=== PATIENT | male | born 1955 | race Hispanic/Latino ===

== ENCOUNTER 2016-11-18 10:22 | Outpatient (CLI) | payer OTHER ==
--- NOTE | 2016-11-18 11:20 | XRay Report ---
CERVICAL SPINE RADIOGRAPHS INDICATION: Hepatitis C, mental problems and left shoulder pain. COMPARISON: None similar at this institution. FINDINGS: AP, open-mouth, lateral and swimmer's views of the cervical spine, 4 images demonstrate unremarkable dens with symmetric lateral masses, though dens tip slightly obscured due to overlying skull. Few missing teeth and small dental radiopaque filling noted. Intact craniocervical articulation with normal predental space and prevertebral soft tissues. Preserved airway. Normal vertebral body stature with mild degenerative spurring. Slight upper cervical spine straightening. Mild disc narrowing also seen, more so from C4 through C6-C7 with slight adjacent sclerosis. Osteopenia. Mild biapical scarring/pleural thickening. CONCLUSION: Cervical spondylosis without acute radiographic abnormality, as described. Please correlate. Thank you for the opportunity to participate in this patient's care.
--- NOTE | 2016-11-18 11:21 | XRay Report ---
RIGHT SHOULDER: History: Right shoulder pain. Routine views demonstrate normal bony and soft tissue structures with normal joint alignment of the shoulder. Minimal osteoarthritic changes are noted. IMPRESSION: Unremarkable right shoulder films.
== END 2016-11-18 10:23 | disposition home or self-care (01) ==
LOC: XRAY 10:22
PROVIDERS: ATTEND Internal Medicine
DX: M19.011 Primary osteoarthritis, right shoulder (principal); M47.892 Other spondylosis, cervical region; M85.88 Other specified disorders of bone density and structure, other site; B19.20 Unspecified viral hepatitis C without hepatic coma; F99 Mental disorder, not otherwise specified
CPT/HCPCS: 72040

== ENCOUNTER 2017-02-15 09:58 | Emergency (ER) | payer MEDICAID, OTHER ==
[2017-02-15 10:33] VITALS: BP 111/68
[2017-02-15] MEDS ORDERED: NACL 0.9% 500 ML 500 ML IV ONE (10:39)
[2017-02-15 11:07] LABS: Basophils % (Auto) 0.8 % (0.0-1.8); Eosinophils % (Auto) 2.1 % (0.0-4.3); Hematocrit 40.5 % (35.5-45.6); Hemoglobin 13.5 gm/dl (11.8-15.2); Mean Corpuscular HGB Conc 33 % (32-34); Mean Corpuscular Hemoglobin 31 pg (28-32); Mean Corpuscular Volume 93 fl (84-94); Platelet Count 257 K/mm3 (140-440); Red Blood Count 4.35 M/mm3 (3.65-5.03); Red Cell Distribution Width 13.5 % (13.2-15.2); White Blood Count 7.7 K/mm3 (4.5-11.0)
[2017-02-15 11:19] LABS: Alanine Aminotransferase 139 units/L (7-56); Albumin 3.8 g/dL (3.9-5); Alkaline Phosphatase 124 units/L (35-129); Anion Gap 19 mmol/L; Blood Urea Nitrogen 19 mg/dL (9-20); Calcium 8.8 mg/dL (8.4-10.2); Carbon Dioxide 23 mmol/L (22-30); Chloride 100.7 mmol/L (98-107); Glucose 110 mg/dL (75-100); Lipase 76 units/L (13-60); Potassium 4.1 mmol/L (3.6-5.0); Sodium 139 mmol/L (137-145); Total Protein 7.7 g/dL (6.3-8.2)
[2017-02-15 11:45] LABS: INR 0.95 (0.87-1.13)
[2017-02-15 11:50] LABS: Bilirubin,Urine NEG (Negative); Blood,Urine NEG (Negative); Ketones,Urine NEG (Negative); Leukocyte Esterase,Urine NEG (Negative); Mucus,Urine FEW /HPF; Nitrite,Urine NEG (Negative)
--- NOTE | 2017-02-15 13:18 | XRay Report ---
CHEST TWO VIEWS: 02/15/17 09:58:00 CLINICAL: Sepsis. COMPARISON: none FINDINGS: Normal heart and pulmonary vasculature. The lungs are hyperexpanded and hyperlucent. No airspace disease or pleural effusion. Degenerative changes in the spine. IMPRESSION: COPD.No pneumonia.
--- NOTE | 2017-02-17 14:49 | ED Elopement Review ---
ED Pt Elopement review - Results review Lab results: Laboratory Tests 02/15/17 02/15/17 02/15/17 10:42 10:42 10:54 WBC 7.7 RBC 4.35 Hgb 13.5 Hct 40.5 MCV 93 MCH 31 MCHC 33 RDW 13.5 Plt Count 257 Lymph % (Auto) 37.6 H Dale % (Auto) 9.6 H Eos % (Auto) 2.1 Baso % (Auto) 0.8 Lymph # 2.9 Dale # 0.7 Eos # 0.2 Baso # 0.1 Seg Neutrophils % 49.9 Seg Neutrophils # 3.9 PT 13.1 INR 0.95 VBG pH Sodium 139 Potassium 4.1 Chloride 100.7 Carbon Dioxide 23 Anion Gap 19 BUN 19 Creatinine 1.0 Estimated GFR > 60 BUN/Creatinine Ratio 19.00 Glucose 110 H Lactic Acid Calcium 8.8 Total Bilirubin 0.60 AST 116 H ALT 139 H Alkaline Phosphatase 124 Total Protein 7.7 Albumin 3.8 L Albumin/Globulin Ratio 1.0 Lipase 76 H Urine Color Urine Turbidity Urine pH Ur Specific [place] Urine Protein Urine Glucose (UA) Urine Ketones Urine Blood Urine Nitrite Urine Bilirubin Urine Urobilinogen Ur Leukocyte Esterase Urine WBC (Auto) Urine RBC (Auto) U Epithel Cells (Auto) Calcium Oxalate Crystal Urine Mucus 02/15/17 02/15/17 02/15/17 10:54 10:54 11:19 WBC RBC Hgb Hct MCV MCH MCHC RDW Plt Count Lymph % (Auto) Dale % (Auto) Eos % (Auto) Baso % (Auto) Lymph # Dale # Eos # Baso # Seg Neutrophils % Seg Neutrophils # PT INR VBG pH 7.387 Sodium Potassium Chloride Carbon Dioxide Anion Gap BUN Creatinine Estimated GFR BUN/Creatinine Ratio Glucose Lactic Acid 1.30 Calcium Total Bilirubin AST ALT Alkaline Phosphatase Total Protein Albumin Albumin/Globulin Ratio Lipase Urine Color Yellow Urine Turbidity Clear Urine pH 5.0 Ur Specific [place] 1.021 Urine Protein 30 mg/dl Urine Glucose (UA) Neg Urine Ketones Neg Urine Blood Neg Urine Nitrite Neg Urine Bilirubin Neg Urine Urobilinogen 2.0 Ur Leukocyte Esterase Neg Urine WBC (Auto) 2.0 Urine RBC (Auto) 2.0 U Epithel Cells (Auto) < 1.0 Calcium Oxalate Crystal 2+ Urine Mucus Few - Call Back decision Pt Call Back Decision: Call pt to return to ED [facility] (tachycardia and elevated LFTs should be further evaluated)
== END 2017-02-15 10:55 | disposition left against medical advice (07) ==
LOC: ED 09:58
DX: R10.9 Unspecified abdominal pain (principal); M54.9 Dorsalgia, unspecified; Z53.21 Procedure and treatment not carried out due to patient leaving prior to being seen by health care provider
CPT/HCPCS: 36415; 71020; 80053; 81001; 82140; 82805; 83690; 85025; 85610; 87040